=== PATIENT | female | born 1975 | race Asian ===

== ENCOUNTER 2022-07-26 20:14 | Emergency (ER) | payer SELFPAY | END 2022-07-26 20:18 | disposition left against medical advice (07) | LOC: EDSEX → EMS 20:17 | DX: Z53.21 Procedure and treatment not carried out due to patient leaving prior to being seen by health care provider (principal) ==

== ENCOUNTER 2022-07-30 16:00 | Emergency (ER) | payer MEDICAID ==
[~2022-07-30] VITALS: Ht 170.2 cm; Wt 62.3 kg
[2022-07-30 16:11] VITALS: BP 150/110
[2022-07-30 16:23] LABS: COVID AG,FIA SOURCE NASAL SWAB
[2022-07-30] MEDS ORDERED: HYDROCODONE/ACETAMINOPHEN 5-325 MG TABLET PO ONE (18:00)
[2022-07-30 18:45] LABS: INFLUENZA TYPE A Presumptive Positive (NEGATIVE)
[2022-07-30 18:49] LABS: INFLUENZA TYPE B Presumptive Positive (NEGATIVE)
== END 2022-07-30 18:07 | disposition home or self-care (01) ==
LOC: EMS 16:27 → EDSEX 16:27 → EMS 18:07
DX: R51.9 Headache, unspecified (principal); Z20.822 Contact with and (suspected) exposure to COVID-19
CPT/HCPCS: 99283; 87426; 87804; 36415; C9803

== ENCOUNTER 2022-08-10 21:24 | Emergency (ER) | payer MEDICAID ==
[~2022-08-10] VITALS: Ht 170.2 cm; Wt 62.3 kg
[2022-08-10 21:34] VITALS: BP 147/84
[2022-08-10] MEDS ORDERED: HYDR-4808 PO (21:51)
[2022-08-10] MEDS ORDERED: HYDROCODONE/ACETAMINOPHEN 5-325 MG TABLET PO ONE (22:00)
== END 2022-08-10 22:53 | disposition home or self-care (01) ==
LOC: EMS 21:39
DX: G43.909 Migraine, unspecified, not intractable, without status migrainosus (principal); Z87.890 Personal history of sex reassignment; Z98.890 Other specified postprocedural states
CPT/HCPCS: 99283

== ENCOUNTER 2022-08-23 18:40 | Emergency (ER) | payer MEDICAID ==
[~2022-08-23] VITALS: Ht 170.2 cm; Wt 64.5 kg
[~2022-08-23 18:40] MED LIST: HYDR-4808 PO
[2022-08-23 19:03] VITALS: BP 139/90
== END 2022-08-23 20:00 | disposition left against medical advice (07) ==
LOC: EMS 18:42
DX: R04.0 Epistaxis (principal); Z53.21 Procedure and treatment not carried out due to patient leaving prior to being seen by health care provider

== ENCOUNTER 2022-08-26 22:54 | Emergency (ER) | payer MEDICAID ==
[~2022-08-26] VITALS: Ht 170.2 cm; Wt 63.0 kg
[2022-08-26 23:37] VITALS: BP 142/90
[2022-08-27] MEDS ORDERED: ACETAMINOPHEN 500 MG TABLET PO ONE
[2022-08-27] MEDS ORDERED: KETOROLAC TROMETHAMINE 30 MG/ML VIAL IM ONE
== END 2022-08-27 00:27 | disposition home or self-care (01) ==
LOC: EMS 23:05
DX: G43.909 Migraine, unspecified, not intractable, without status migrainosus (principal); R04.0 Epistaxis; Z98.890 Other specified postprocedural states
CPT/HCPCS: 99283; 96372; J1885

== ENCOUNTER 2022-10-07 01:33 | Emergency (ER) | payer MEDICAID | END 2022-10-07 01:55 | disposition left against medical advice (07) | LOC: EMS 01:34 | DX: Z53.21 Procedure and treatment not carried out due to patient leaving prior to being seen by health care provider (principal) ==

== ENCOUNTER 2022-10-18 01:55 | Emergency (ER) | payer MEDICAID ==
[~2022-10-18] VITALS: Ht 170.2 cm; Wt 68.2 kg
[2022-10-18 01:58] VITALS: BP 151/98
[2022-10-18] MEDS ORDERED: DiphenhydrAMINE HCL 50 MG/ML VIAL IVP ONE (02:30)
[2022-10-18] MEDS ORDERED: METOCLOPRAMIDE HCL 5 MG/ML 2 ML VIAL IVP ONE (02:30)
[2022-10-18] MEDS ORDERED: KETOROLAC TROMETHAMINE 30 MG/ML VIAL IVP ONE (02:30)
== END 2022-10-18 04:03 | disposition home or self-care (01) ==
LOC: EMS 01:56
DX: G43.909 Migraine, unspecified, not intractable, without status migrainosus (principal); E86.0 Dehydration; Z98.890 Other specified postprocedural states
CPT/HCPCS: 99284; 96374; 96375; 93005; J1200; J1885; J2765

== ENCOUNTER 2022-10-28 02:19 | Emergency (ER) | payer MEDICAID ==
[~2022-10-28] VITALS: Ht 170.2 cm; Wt 68.2 kg
[2022-10-28] MEDS ORDERED: DiphenhydrAMINE HCL 25 MG CAPSULE PO ONE (02:45)
[2022-10-28] MEDS ORDERED: HYDROCODONE/ACETAMINOPHEN 5-325 MG TABLET PO ONE (02:45)
[2022-10-28 03:01] VITALS: BP 136/90
== END 2022-10-28 03:07 | disposition home or self-care (01) ==
LOC: EDSEX → EMS 02:20
DX: R42 Dizziness and giddiness (principal); R51.9 Headache, unspecified; Z98.890 Other specified postprocedural states
CPT/HCPCS: 99283

== ENCOUNTER 2022-11-03 00:55 | Emergency (ER) | payer MEDICAID ==
[~2022-11-03] VITALS: Ht 170.2 cm; Wt 67.0 kg
[2022-11-03 01:04] VITALS: BP 137/77
== END 2022-11-03 02:00 | disposition left against medical advice (07) ==
LOC: EMS 00:57
DX: Z53.21 Procedure and treatment not carried out due to patient leaving prior to being seen by health care provider (principal)
CPT/HCPCS: 99281; Z7502

== ENCOUNTER 2022-11-07 05:53 | Emergency (ER) | payer MEDICAID ==
[~2022-11-07] VITALS: Ht 170.2 cm; Wt 67.0 kg
[2022-11-07 05:56] VITALS: BP 134/96
[2022-11-07] MEDS ORDERED: CIPR2.5D17 OU (06:01)
== END 2022-11-07 06:13 | disposition home or self-care (01) ==
LOC: EMS 05:54
DX: H10.9 Unspecified conjunctivitis (principal); G43.909 Migraine, unspecified, not intractable, without status migrainosus; Z98.890 Other specified postprocedural states
CPT/HCPCS: 99283; Z7502

== ENCOUNTER 2022-11-12 01:01 | Emergency (ER) | payer MEDICAID ==
[~2022-11-12] VITALS: Ht 172.7 cm; Wt 72.0 kg
[~2022-11-12 01:01] MED LIST changes: +CIPR2.5D17 OU; -HYDR-4808 PO
[2022-11-12 01:05] VITALS: BP 134/90
== END 2022-11-12 02:05 | disposition left against medical advice (07) ==
LOC: EMS 01:01
DX: H57.11 Ocular pain, right eye (principal); Z53.21 Procedure and treatment not carried out due to patient leaving prior to being seen by health care provider
CPT/HCPCS: 99281; Z7502

== ENCOUNTER 2022-12-08 07:25 | Emergency (ER) | payer MEDICAID ==
[~2022-12-08] VITALS: Ht 172.7 cm; Wt 72.0 kg
[2022-12-08 07:45] VITALS: BP 145/88
[2022-12-08] MEDS ORDERED: PROPARACAINE HCL 0.5% 15 ML OPHTHALMIC SOLUTION OD ONE (07:45)
[2022-12-08] MEDS ORDERED: FLUORESCEIN SODIUM 1 MG STRIP OS ONE (07:45)
[2022-12-08] MEDS ORDERED: FLUORESCEIN SODIUM 1 MG STRIP OD ONE (07:45)
[2022-12-08] MEDS ORDERED: OFLOXACIN 0.3% 5 ML OPHTHALMIC SOLUTION OU ONE (08:00)
[2022-12-08] MEDS ORDERED: GENTOS OU (08:07)
[2022-12-08] MEDS ORDERED: GENTAMICIN SULFATE 0.3% OPHTHALMIC SOLUTION 5 ML OU ONE (08:15)
== END 2022-12-08 08:24 | disposition home or self-care (01) ==
LOC: EMS 07:25
DX: T15.01XA Foreign body in cornea, right eye, initial encounter (principal); G43.909 Migraine, unspecified, not intractable, without status migrainosus; Z98.890 Other specified postprocedural states; W45.8XXA Other foreign body or object entering through skin, initial encounter; Y93.89 Activity, other specified; Y92.89 Other specified places as the place of occurrence of the external cause; Y99.8 Other external cause status
CPT/HCPCS: 99283

== ENCOUNTER 2022-12-21 01:56 | Emergency (ER) | payer MEDICAID ==
[~2022-12-21] VITALS: Ht 170.2 cm; Wt 57.0 kg
[~2022-12-21 01:56] MED LIST changes: -CIPR2.5D17 OU; +GENTOS OU
[2022-12-21 03:30] LABS: EOSINOPHILS % (AUTO) 1.8 % (1.0-6.0); HEMOGLOBIN 13.2 g/dL (13.5-17.5); LYMPHOCYTES # (AUTO) 0.7 K/uL (1.0-4.8); LYMPHOCYTES % (AUTO) 30.8 % (22.0-44.0); MEAN CORPUSCULAR HEMOGLOBIN 31.5 pg (26.0-34.0); MEAN CORPUSCULAR HGB CONC 32.9 G/dL (31.0-37.0); MEAN CORPUSCULAR VOLUME 96 fL (80-100); MONOCYTES # (AUTO) 0.3 K/uL (0.1-1.0); MONOCYTES % (AUTO) 13.3 % (2.0-9.0); NEUTROPHILS # (AUTO) 1.3 K/uL (1.8-7.7); NEUTROPHILS % (AUTO) 53.1 % (40.0-70.0); PLATELET COUNT (AUTO) 242 K/uL (150-450); RED BLOOD CELL COUNT(AUTO) 4.18 MIL/uL (4.50-5.90); RED CELL DISTRIBUTION WIDTH 13.1 % (11.5-14.5)
[2022-12-21 03:39] LABS: ANION GAP 5 mmol/L (8-16); CARBON DIOXIDE 30 mmol/L (22-29); CHLORIDE 102 mmol/L (98-107); CREATININE 1.07 mg/dL (0.60-1.30); GLOMERULAR FILTR. RATE CALC > 60 mL/min (>60); GLUCOSE,RANDOM 94 mg/dL (70-110); POTASSIUM 3.7 mmol/L (3.5-5.1); SODIUM SERUM 137 mmol/L (136-145)
[2022-12-21 03:46] LABS: ALANINE AMINOTRANSFERASE 52 U/L (12-78); ALBUMIN 3.6 g/dL (3.4-5.0); ALKALINE PHOSPHATASE 98 U/L (46-116); ASPARTATE AMINOTRANSFERASE 40 U/L (15-37); BILIRUBIN,TOTAL 0.3 mg/dL (0.1-1.0); TOTAL PROTEIN, SERUM 7.8 g/dL (6.4-8.2)
[2022-12-21] MEDS ORDERED: OLANZapine 5 MG TABLET PO ONE (04:15)
[2022-12-21 04:26] VITALS: BP 130/88
== END 2022-12-21 04:36 | disposition home or self-care (01) ==
LOC: EMS 01:57
DX: F41.9 Anxiety disorder, unspecified (principal); F32.A Depression, unspecified; G47.00 Insomnia, unspecified; G43.909 Migraine, unspecified, not intractable, without status migrainosus
CPT/HCPCS: 99283; 80053; 85025; 36415; G0480

== ENCOUNTER 2023-01-03 06:57 | Emergency (ER) | payer MEDICAID ==
[~2023-01-03] VITALS: Ht 170.2 cm; Wt 57.7 kg
[2023-01-03 07:04] VITALS: BP 122/88
[2023-01-03] MEDS ORDERED: GENTAMICIN SULFATE 0.3% OPHTHALMIC SOLUTION 5 ML OD ONE (07:15)
== END 2023-01-03 08:06 | disposition home or self-care (01) ==
LOC: EMS 06:57
DX: S05.01XA Injury of conjunctiva and corneal abrasion without foreign body, right eye, initial encounter (principal); H10.9 Unspecified conjunctivitis; G43.909 Migraine, unspecified, not intractable, without status migrainosus; Z98.890 Other specified postprocedural states; X58.XXXA Exposure to other specified factors, initial encounter; Y93.89 Activity, other specified; Y92.89 Other specified places as the place of occurrence of the external cause; Y99.8 Other external cause status
CPT/HCPCS: 99282; Z7502; Z7610

== ENCOUNTER 2023-01-12 23:39 | Emergency (ER) | payer MEDICAID ==
[~2023-01-12] VITALS: Ht 170.2 cm; Wt 58.0 kg
[2023-01-12 23:46] VITALS: BP 122/82; PULSE 92; RESP 18; TEMP 99.7
[2023-01-13] MEDS ORDERED: TOBRAMYCIN/DEXAMETHASONE 5 ML OPHTHALMIC SUSPENSION OU ONE (00:15)
== END 2023-01-13 00:27 | disposition home or self-care (01) ==
LOC: EMS 23:42
DX: H10.33 Unspecified acute conjunctivitis, bilateral (principal); E03.9 Hypothyroidism, unspecified; Z98.890 Other specified postprocedural states
CPT/HCPCS: 99283

== ENCOUNTER 2023-01-23 10:09 | Emergency (ER) | payer MEDICAID | END 2023-01-23 12:06 | disposition left against medical advice (07) | LOC: EMS 10:09 | DX: Z53.21 Procedure and treatment not carried out due to patient leaving prior to being seen by health care provider (principal) | CPT/HCPCS: 99281; Z7502 ==

== ENCOUNTER 2023-03-23 01:57 | Emergency (ER) | payer MEDICAID ==
[~2023-03-23] VITALS: Ht 170.2 cm; Wt 61.0 kg
[2023-03-23 02:01] VITALS: BP 113/89; PULSE 92; RESP 16; TEMP 97.9
== END 2023-03-23 02:35 | disposition left against medical advice (07) ==
LOC: EMS 02:02
DX: G43.909 Migraine, unspecified, not intractable, without status migrainosus (principal); R06.02 Shortness of breath; R42 Dizziness and giddiness; R09.81 Nasal congestion; Z53.21 Procedure and treatment not carried out due to patient leaving prior to being seen by health care provider
CPT/HCPCS: 99281; Z7502

== ENCOUNTER 2023-07-16 21:45 | Emergency (ER) | payer MEDICAID | END 2023-07-16 22:07 | disposition left against medical advice (07) | LOC: EMS 21:46 | DX: Z53.21 Procedure and treatment not carried out due to patient leaving prior to being seen by health care provider (principal) ==

== ENCOUNTER 2023-07-19 23:11 | Emergency (ER) | payer MEDICAID ==
[~2023-07-19] VITALS: Ht 172.7 cm; Wt 79.5 kg
[2023-07-19 23:14] VITALS: BP 146/88; PULSE 94; RESP 15; TEMP 98
[2023-07-19] MEDS ORDERED: DiphenhydrAMINE HCL 25 MG CAPSULE PO ONE (23:15)
[2023-07-19] MEDS ORDERED: ACETAMINOPHEN 500 MG TABLET PO ONE (23:15)
[2023-07-19] MEDS ORDERED: GABAPENTIN 100 MG CAPSULE PO ONE (23:15)
== END 2023-07-19 23:31 | disposition home or self-care (01) ==
LOC: EMS 23:12
DX: R51.9 Headache, unspecified (principal); R42 Dizziness and giddiness; E03.9 Hypothyroidism, unspecified; F64.0 Transsexualism; Z98.890 Other specified postprocedural states
CPT/HCPCS: 99284; Z7502; Z7610

== ENCOUNTER 2023-07-28 23:56 | Emergency (ER) | payer MEDICAID ==
[~2023-07-28] VITALS: Ht 167.6 cm; Wt 80.0 kg
[2023-07-29 00:42] VITALS: BP 150/90; PULSE 92; RESP 18; TEMP 98.1
== END 2023-07-29 01:45 | disposition left against medical advice (07) ==
LOC: EMS 23:57
DX: R04.0 Epistaxis (principal); Z53.21 Procedure and treatment not carried out due to patient leaving prior to being seen by health care provider
CPT/HCPCS: 99281; Z7502

== ENCOUNTER 2023-08-05 00:22 | Emergency (ER) | payer MEDICAID ==
[~2023-08-05] VITALS: Ht 170.2 cm; Wt 60.0 kg
[2023-08-05] MEDS ORDERED: NEOMYCIN/POLYMYXIN B/HYDROCORT 10 ML OTIC SOLUTION AU ONE (03:00)
[2023-08-05] MEDS ORDERED: ACETAMINOPHEN 500 MG TABLET PO ONE (03:00)
[2023-08-05] MEDS ORDERED: CORTSOL AU (03:25)
[2023-08-05] MEDS ORDERED: ACET-3385 PO (03:25)
[2023-08-05 03:26] VITALS: BP 124/77; PULSE 88; RESP 18; TEMP 97.9
== END 2023-08-05 04:15 | disposition home or self-care (01) ==
LOC: EMS 00:23
DX: H60.93 Unspecified otitis externa, bilateral (principal); R04.0 Epistaxis; F64.0 Transsexualism; Z98.890 Other specified postprocedural states
CPT/HCPCS: 99283

== ENCOUNTER 2023-08-26 12:48 | Emergency (ER) | payer MEDICAID ==
[~2023-08-26 12:48] MED LIST changes: +ACET-3385 PO; +CORTSOL AU
== END 2023-08-26 15:34 | disposition left against medical advice (07) ==
LOC: EMS 13:25
DX: Z53.21 Procedure and treatment not carried out due to patient leaving prior to being seen by health care provider (principal)

== ENCOUNTER 2023-09-01 15:28 | Emergency (ER) | payer MEDICAID ==
[~2023-09-01] VITALS: Ht 170.2 cm; Wt 84.1 kg
[2023-09-01 15:31] VITALS: BP 134/98; PULSE 98; RESP 18; TEMP 98
[2023-09-01] MEDS ORDERED: LEVO50TA11 PO (16:05)
[2023-09-01] MEDS: OXYMETAZOLINE HCL 0.05% 15 ML NASAL SPRAY NASAL ONE (16:37)
== END 2023-09-01 17:06 | disposition home or self-care (01) ==
LOC: EMS 15:28
DX: R04.0 Epistaxis (principal); Z85.9 Personal history of malignant neoplasm, unspecified
CPT/HCPCS: 99282; Z7502; Z7610

== ENCOUNTER 2023-09-05 11:33 | Emergency (ER) | payer MEDICAID ==
[~2023-09-05] VITALS: Ht 170.2 cm; Wt 57.7 kg
[~2023-09-05 11:33] MED LIST changes: +LEVO50TA11 PO
[2023-09-05 11:37] VITALS: BP 105/72; PULSE 98; RESP 18; TEMP 98.5
== END 2023-09-05 12:31 | disposition left against medical advice (07) ==
LOC: EMS 11:56
DX: R04.0 Epistaxis (principal); Z53.21 Procedure and treatment not carried out due to patient leaving prior to being seen by health care provider
CPT/HCPCS: 99281; Z7502

== ENCOUNTER 2023-09-17 22:07 | Emergency (ER) | payer MEDICAID ==
[~2023-09-17] VITALS: Ht 170.2 cm; Wt 57.7 kg
[~2023-09-17 22:07] MED LIST changes: -CORTSOL AU; -GENTOS OU
[2023-09-17 22:17] VITALS: BP 117/62; PULSE 118; RESP 18; TEMP 97.8
[2023-09-17] MEDS: PHENYLEPHRINE HCL 0.25% 15 ML NASAL SPRAY NASAL ONE (23:19)
== END 2023-09-17 23:52 | disposition home or self-care (01) ==
LOC: EMS 22:07
DX: R04.0 Epistaxis (principal); Z85.818 Personal history of malignant neoplasm of other sites of lip, oral cavity, and pharynx
CPT/HCPCS: 99282; Z7502; Z7610

== ENCOUNTER 2023-10-11 01:17 | Emergency (ER) | payer MEDICAID ==
[~2023-10-11] VITALS: Ht 167.6 cm; Wt 59.1 kg
[2023-10-11 01:19] VITALS: BP 150/90; PULSE 103; RESP 18; TEMP 97.6
== END 2023-10-11 02:28 | disposition left against medical advice (07) ==
LOC: EMS 01:17
DX: R04.0 Epistaxis (principal); Z53.21 Procedure and treatment not carried out due to patient leaving prior to being seen by health care provider
CPT/HCPCS: 99281; Z7502

== ENCOUNTER 2023-11-03 02:55 | Emergency (ER) | payer MEDICAID ==
[~2023-11-03 02:55] MED LIST changes: -ACET-3385 PO
== END 2023-11-03 03:21 | disposition left against medical advice (07) ==
LOC: EMS 03:02
DX: Z53.21 Procedure and treatment not carried out due to patient leaving prior to being seen by health care provider (principal)

== ENCOUNTER 2023-12-04 02:17 | Emergency (ER) | payer MEDICAID ==
[~2023-12-04 02:17] MED LIST changes: +BENZ-227 PO
== END 2023-12-04 04:26 | disposition left against medical advice (07) ==
LOC: EMS 02:19
DX: Z53.21 Procedure and treatment not carried out due to patient leaving prior to being seen by health care provider (principal)

== ENCOUNTER 2023-12-27 13:59 | Emergency (ER) | payer MEDICAID ==
[~2023-12-27] VITALS: Ht 172.7 cm; Wt 61.4 kg
[2023-12-27 14:45] VITALS: TEMP 97.7
[2023-12-27 14:53] LABS: BASOPHILS % (AUTO) 0.7 % (0.0-2.0); EOSINOPHILS % (AUTO) 0.6 % (1.0-6.0); HEMOGLOBIN 13.6 g/dL (13.5-17.5); LYMPHOCYTES # (AUTO) 1.1 K/uL (1.0-4.8); LYMPHOCYTES % (AUTO) 33.3 % (22.0-44.0); MEAN CORPUSCULAR HEMOGLOBIN 29.7 pg (26.0-34.0); MEAN CORPUSCULAR VOLUME 90 fL (80-100); MONOCYTES # (AUTO) 0.3 K/uL (0.1-1.0); MONOCYTES % (AUTO) 9.9 % (2.0-9.0); NEUTROPHILS # (AUTO) 1.8 K/uL (1.8-7.7); NEUTROPHILS % (AUTO) 55.5 % (40.0-70.0); PLATELET COUNT (AUTO) 268 K/uL (150-450); RED BLOOD CELL COUNT(AUTO) 4.56 MIL/uL (4.50-5.90); RED CELL DISTRIBUTION WIDTH 15.3 % (11.5-14.5); WHITE BLOOD COUNT (AUTO) 3.2 K/uL (4.5-11.0)
[2023-12-27] MEDS: ONDANSETRON HCL 4 MG/2 ML VIAL IVP ONE (15:02)
[2023-12-27] MEDS: SODIUM CHLORIDE 0.9% 1,000 ML IV ONE (15:02)
[2023-12-27 15:06] LABS: ANION GAP 6 mmol/L (8-16); CALCIUM, TOTAL 9.1 mg/dL (8.8-10.5); CARBON DIOXIDE 28 mmol/L (22-29); CHLORIDE 103 mmol/L (98-107); CREATININE 0.77 mg/dL (0.60-1.30); GLOMERULAR FILTR. RATE CALC > 60 mL/min (>60); GLUCOSE,RANDOM 118 mg/dL (70-110); POTASSIUM 4.4 mmol/L (3.5-5.1); SODIUM SERUM 137 mmol/L (136-145); UREA NITROGEN, BLOOD 17 mg/dL (7-18)
[2023-12-27 15:12] LABS: ALANINE AMINOTRANSFERASE 44 U/L (12-78); ALBUMIN 3.4 g/dL (3.4-5.0); ALKALINE PHOSPHATASE 65 U/L (46-116); ASPARTATE AMINOTRANSFERASE 40 U/L (15-37); BILIRUBIN,TOTAL 0.7 mg/dL (0.1-1.0); LIPASE 25 U/L (16-77); TOTAL PROTEIN, SERUM 8.4 g/dL (6.4-8.2)
[2023-12-27] MEDS ORDERED: POLY119P3 PO (15:57)
[2023-12-27 16:02] VITALS: BP 136/80; PULSE 84; RESP 16
[2023-12-27 16:29] LABS: APPEARANCE,URINE CLEAR (CLEAR); BILIRUBIN,URINE NEGATIVE (NEGATIVE); COLOR,URINE LIGHT YELLOW (YELLOW); GLUCOSE, URINE (UA) NEGATIVE (NEGATIVE); KETONES,URINE NEGATIVE (NEGATIVE); LEUKOCYTE ESTERASE ,URINE NEGATIVE (NEGATIVE); NITRATE,URINE NEGATIVE (NEGATIVE); OCCULT BLOOD,URINE NEGATIVE (NEGATIVE); PH,URINE 6.5 (5.0-8.0); PROTEIN,URINE NEGATIVE (NEGATIVE); SPECIFIC GRAVITIY, URINE 1.021 (1.003-1.030); UROBILINOGEN,URINE <=1.0 mg/dL (<=1.0)
== END 2023-12-27 16:50 | disposition home or self-care (01) ==
LOC: EMS 13:59
DX: R10.13 Epigastric pain (principal); K59.00 Constipation, unspecified; G43.909 Migraine, unspecified, not intractable, without status migrainosus; Z85.9 Personal history of malignant neoplasm, unspecified
CPT/HCPCS: 99284; 96374; 96361; 80053; 81003; 83690; 85025; 36415; 74022; J2405; J7030

== ENCOUNTER 2024-02-04 22:41 | Emergency (ER) | payer MEDICAID ==
[~2024-02-04] VITALS: Ht 172.7 cm; Wt 60.9 kg
[~2024-02-04 22:41] MED LIST changes: -BENZ-227 PO; +POLY119P3 PO
[2024-02-04 22:51] VITALS: TEMP 97.4
[2024-02-04] MEDS: SODIUM CHLORIDE 0.9% 1,000 ML IV ONE (23:17)
[2024-02-04] MEDS: ONDANSETRON HCL 4 MG/2 ML VIAL IVP ONE (23:18)
[2024-02-04 23:43] LABS: BASOPHILS % (AUTO) 1.1 % (0.0-2.0); EOSINOPHILS % (AUTO) 1.1 % (1.0-6.0); HEMATOCRIT 38.7 % (41-53); HEMOGLOBIN 12.7 g/dL (13.5-17.5); LYMPHOCYTES # (AUTO) 0.8 K/uL (1.0-4.8); LYMPHOCYTES % (AUTO) 30.7 % (22.0-44.0); MEAN CORPUSCULAR HEMOGLOBIN 29.2 pg (26.0-34.0); MEAN CORPUSCULAR HGB CONC 32.7 G/dL (31.0-37.0); MEAN CORPUSCULAR VOLUME 89 fL (80-100); MONOCYTES # (AUTO) 0.3 K/uL (0.1-1.0); MONOCYTES % (AUTO) 10.5 % (2.0-9.0); NEUTROPHILS # (AUTO) 1.5 K/uL (1.8-7.7); NEUTROPHILS % (AUTO) 56.6 % (40.0-70.0); PLATELET COUNT (AUTO) 245 K/uL (150-450); RED BLOOD CELL COUNT(AUTO) 4.34 MIL/uL (4.50-5.90); RED CELL DISTRIBUTION WIDTH 15.8 % (11.5-14.5); WHITE BLOOD COUNT (AUTO) 2.6 K/uL (4.5-11.0)
[2024-02-04 23:48] LABS: COVID AG,FIA SOURCE NASAL SWAB
[2024-02-04 23:54] LABS: ANION GAP 7 mmol/L (8-16); CALCIUM, TOTAL 9.1 mg/dL (8.8-10.5); CARBON DIOXIDE 33 mmol/L (22-29); CHLORIDE 101 mmol/L (98-107); CREATININE 0.88 mg/dL (0.60-1.30); GLOMERULAR FILTR. RATE CALC > 60 mL/min (>60); GLUCOSE,RANDOM 96 mg/dL (70-110); POTASSIUM 4.2 mmol/L (3.5-5.1); SODIUM SERUM 141 mmol/L (136-145); UREA NITROGEN, BLOOD 16 mg/dL (7-18)
[2024-02-05 00:02] LABS: TROPONIN I-HIGH SENSITIVITY 8 ng/L (<76)
[2024-02-05 00:06] LABS: LACTIC ACID 0.8 mmol/L (0.4-2.0)
[2024-02-05 00:12] LABS: INFLUENZA TYPE A NEGATIVE FOR TYPE A (NEGATIVE); INFLUENZA TYPE B POSITIVE FOR TYPE B (NEGATIVE); SARS-COV2 (COVID) ANTIGEN,FIA Negative (Negative)
[2024-02-05 00:17] LABS: B-TYPE NATRIURETIC PEPTIDE 35 pg/mL (0-100)
[2024-02-05 00:18] LABS: ALANINE AMINOTRANSFERASE 37 U/L (12-78); ALBUMIN 3.3 g/dL (3.4-5.0); ALKALINE PHOSPHATASE 59 U/L (46-116); ASPARTATE AMINOTRANSFERASE 42 U/L (15-37); BILIRUBIN,TOTAL 0.4 mg/dL (0.1-1.0); CREATINE KINASE, TOTAL ONLY 275 U/L (39-308); LIPASE 40 U/L (16-77); PHOSPHORUS 3.6 mg/dL (2.5-4.9); TOTAL PROTEIN, SERUM 7.7 g/dL (6.4-8.2)
[2024-02-05 02:21] LABS: AMPHET/METH SCREEN,URINE POSITIVE (NEGATIVE); BARBITURATE SCREEN, URINE NEGATIVE (NEGATIVE); BENZODIAZEPINES SCREEN,URINE NEGATIVE (NEGATIVE); CANNABINOID SCREEN,URINE NEGATIVE (NEGATIVE); COCAINE SCREEN,URINE NEGATIVE (NEGATIVE); METHADONE SCREEN, URINE NEGATIVE (NEGATIVE); OPIATE SCREEN,URINE NEGATIVE (NEGATIVE); PHENCYCLIDINE SCREEN,URINE NEGATIVE (NEGATIVE)
[2024-02-05 02:22] LABS: ALCOHOL, URINE DRUG SCREEN NEGATIVE (NEGATIVE)
[2024-02-05] MEDS ORDERED: ONDA-104 PO (02:43)
[2024-02-05] MEDS ORDERED: ACET-3385 PO (02:43)
[2024-02-05] MEDS ORDERED: IBUP-1492 PO (02:43)
[2024-02-05 02:50] VITALS: BP 123/67; PULSE 89; RESP 16
== END 2024-02-05 02:52 | disposition home or self-care (01) ==
LOC: EMS 22:41
DX: F15.10 Other stimulant abuse, uncomplicated (principal); R11.2 Nausea with vomiting, unspecified; J11.1 Influenza due to unidentified influenza virus with other respiratory manifestations; Z85.9 Personal history of malignant neoplasm, unspecified; Z20.822 Contact with and (suspected) exposure to COVID-19
CPT/HCPCS: 99285; 96374; 70450; 71045; 96361; 87426; 80053; 82550; 83605; 83690; 83735; 83880; 84100; 84484; 85025; 85730; 87804; 36415; 93005; 80307; G0480; J2405; J7030

== ENCOUNTER 2024-02-12 16:27 | Emergency (ER) | payer MEDICAID ==
[~2024-02-12] VITALS: Ht 172.7 cm; Wt 63.6 kg
[~2024-02-12 16:27] MED LIST changes: +ACET-3385 PO; +IBUP-1492 PO; +ONDA-104 PO
[2024-02-12 16:35] VITALS: TEMP 98
[2024-02-12] MEDS: SODIUM CHLORIDE 0.9% 1,000 ML IV ONE (19:39)
[2024-02-12] MEDS: DiphenhydrAMINE HCL 50 MG/ML VIAL IVP ONE (19:49)
[2024-02-12] MEDS: PROCHLORPERAZINE EDISYLATE 5 MG/ML 2 ML VIAL IVP ONE (19:49)
[2024-02-12] MEDS: ACETAMINOPHEN 500 MG TABLET PO ONE (19:49)
[2024-02-12] MEDS: KETOROLAC TROMETHAMINE 30 MG/ML VIAL IVP ONE (19:50)
[2024-02-12 20:04] VITALS: BP 135/84; PULSE 74; RESP 20
== END 2024-02-12 22:36 | disposition home or self-care (01) ==
LOC: EMS 16:27
DX: G43.909 Migraine, unspecified, not intractable, without status migrainosus (principal); Z98.890 Other specified postprocedural states
CPT/HCPCS: 99284; 96374; 96375; 96361; J1200; J1885; J0780; J7030

== ENCOUNTER 2024-03-09 03:17 | Emergency (ER) | payer MEDICAID ==
[~2024-03-09] VITALS: Ht 170.2 cm; Wt 59.0 kg
[2024-03-09 03:22] VITALS: TEMP 98.7
[2024-03-09] MEDS: SODIUM CHLORIDE 0.9% 1,000 ML IV ONE (04:19)
[2024-03-09] MEDS: PROCHLORPERAZINE EDISYLATE 5 MG/ML 2 ML VIAL IVP ONE (04:19)
[2024-03-09] MEDS: KETOROLAC TROMETHAMINE 30 MG/ML VIAL IVP ONE (04:19)
[2024-03-09] MEDS: DiphenhydrAMINE HCL 50 MG/ML VIAL IVP ONE (04:19)
[2024-03-09 05:07] LABS: BASOPHILS % (AUTO) 0.5 % (0.0-2.0); EOSINOPHILS % (AUTO) 0.6 % (1.0-6.0); HEMOGLOBIN 14.5 g/dL (13.5-17.5); LYMPHOCYTES # (AUTO) 1.1 K/uL (1.0-4.8); LYMPHOCYTES % (AUTO) 42.5 % (22.0-44.0); MEAN CORPUSCULAR HEMOGLOBIN 29.7 pg (26.0-34.0); MEAN CORPUSCULAR HGB CONC 32.9 G/dL (31.0-37.0); MEAN CORPUSCULAR VOLUME 90 fL (80-100); MONOCYTES # (AUTO) 0.3 K/uL (0.1-1.0); MONOCYTES % (AUTO) 12.4 % (2.0-9.0); NEUTROPHILS # (AUTO) 1.2 K/uL (1.8-7.7); PLATELET COUNT (AUTO) 262 K/uL (150-450); RED BLOOD CELL COUNT(AUTO) 4.87 MIL/uL (4.50-5.90); RED CELL DISTRIBUTION WIDTH 15.3 % (11.5-14.5); WHITE BLOOD COUNT (AUTO) 2.7 K/uL (4.5-11.0)
[2024-03-09 05:09] LABS: ANION GAP 8 mmol/L (8-16); CALCIUM, TOTAL 8.8 mg/dL (8.8-10.5); CARBON DIOXIDE 27 mmol/L (22-29); CHLORIDE 100 mmol/L (98-107); CREATININE 1.03 mg/dL (0.60-1.30); GLOMERULAR FILTR. RATE CALC > 60 mL/min (>60); GLUCOSE,RANDOM 101 mg/dL (70-110); POTASSIUM 3.9 mmol/L (3.5-5.1); SODIUM SERUM 135 mmol/L (136-145); UREA NITROGEN, BLOOD 16 mg/dL (7-18)
[2024-03-09] MEDS ORDERED: ONDA-104 PO (05:56)
[2024-03-09 06:30] VITALS: BP 119/75; PULSE 71; RESP 20
== END 2024-03-09 07:41 | disposition home or self-care (01) ==
LOC: EMS 03:17
DX: G43.909 Migraine, unspecified, not intractable, without status migrainosus (principal); R11.2 Nausea with vomiting, unspecified; R53.1 Weakness; Z98.890 Other specified postprocedural states
CPT/HCPCS: 99284; 96374; 96375; 96361; 80048; 85025; 36415; J1200; J1885; J0780; J7030

== ENCOUNTER 2024-03-13 20:04 | Emergency (ER) | payer MEDICAID ==
[~2024-03-13] VITALS: Ht 170.2 cm; Wt 60.9 kg
[2024-03-13 20:10] VITALS: BP 131/91; PULSE 104; RESP 16; TEMP 98.1; O2SAT 100
[2024-03-13] MEDS ORDERED: KETOROLAC TROMETHAMINE 30 MG/ML VIAL IVP ONE (20:45)
[2024-03-13] MEDS ORDERED: SODIUM CHLORIDE 0.9% 1,000 ML IV ONE (20:45)
[2024-03-13 21:04] LABS: BASOPHILS % (AUTO) 0.9 % (0.0-2.0); EOSINOPHILS % (AUTO) 0.7 % (1.0-6.0); HEMATOCRIT 36.6 % (41-53); HEMOGLOBIN 12.1 g/dL (13.5-17.5); LYMPHOCYTES % (AUTO) 39.3 % (22.0-44.0); MEAN CORPUSCULAR HEMOGLOBIN 29.7 pg (26.0-34.0); MEAN CORPUSCULAR HGB CONC 33.1 G/dL (31.0-37.0); MEAN CORPUSCULAR VOLUME 90 fL (80-100); MONOCYTES # (AUTO) 0.4 K/uL (0.1-1.0); MONOCYTES % (AUTO) 13.4 % (2.0-9.0); NEUTROPHILS # (AUTO) 1.2 K/uL (1.8-7.7); NEUTROPHILS % (AUTO) 45.7 % (40.0-70.0); PLATELET COUNT (AUTO) 225 K/uL (150-450); RED BLOOD CELL COUNT(AUTO) 4.07 MIL/uL (4.50-5.90); RED CELL DISTRIBUTION WIDTH 15.4 % (11.5-14.5); WHITE BLOOD COUNT (AUTO) 2.6 K/uL (4.5-11.0)
[2024-03-13 21:13] LABS: CALCIUM, TOTAL 8.7 mg/dL (8.8-10.5); CREATININE 1.47 mg/dL (0.60-1.30)
[2024-03-13] MEDS: DiphenhydrAMINE HCL 50 MG/ML VIAL IVP ONE (21:20)
[2024-03-13] MEDS: PROCHLORPERAZINE EDISYLATE 5 MG/ML 2 ML VIAL IVP ONE (21:20)
[2024-03-13] MEDS: KETOROLAC TROMETHAMINE 15 MG/ML VIAL IVP ONE (21:20)
== END 2024-03-13 22:47 | disposition left against medical advice (07) ==
LOC: EMS 20:04
DX: G43.909 Migraine, unspecified, not intractable, without status migrainosus (principal); Z98.890 Other specified postprocedural states
CPT/HCPCS: 99284; 96374; 96375; 80048; 85025; 36415; J1200; J1885; J0780; J7030

== ENCOUNTER 2024-05-27 19:11 | Emergency (ER) | payer MEDICAID ==
[~2024-05-27] VITALS: Ht 170.2 cm; Wt 59.0 kg
[2024-05-27 19:21] VITALS: TEMP 98
[2024-05-27 22:39] LABS: ANION GAP 5 mmol/L (8-16); CALCIUM, TOTAL 8.5 mg/dL (8.8-10.5); CARBON DIOXIDE 30 mmol/L (22-29); CHLORIDE 102 mmol/L (98-107); CREATININE 0.84 mg/dL (0.60-1.30); GLOMERULAR FILTR. RATE CALC > 60 mL/min (>60); GLUCOSE,RANDOM 111 mg/dL (70-110); POTASSIUM 4.3 mmol/L (3.5-5.1); SODIUM SERUM 137 mmol/L (136-145); UREA NITROGEN, BLOOD 16 mg/dL (7-18)
[2024-05-27 22:46] LABS: ALANINE AMINOTRANSFERASE 34 U/L (12-78); ALBUMIN 3.3 g/dL (3.4-5.0); ALKALINE PHOSPHATASE 94 U/L (46-116); ASPARTATE AMINOTRANSFERASE 35 U/L (15-37); BILIRUBIN,TOTAL 0.4 mg/dL (0.1-1.0); LIPASE 32 U/L (16-77); TOTAL PROTEIN, SERUM 8.2 g/dL (6.4-8.2)
[2024-05-27 23:10] LABS: BASOPHILS % (AUTO) 0.4 % (0.0-2.0); EOSINOPHILS % (AUTO) 0.2 % (1.0-6.0); HEMATOCRIT 37.2 % (41-53); LYMPHOCYTES # (AUTO) 0.7 K/uL (1.0-4.8); LYMPHOCYTES % (AUTO) 20.7 % (22.0-44.0); MEAN CORPUSCULAR HEMOGLOBIN 28.2 pg (26.0-34.0); MEAN CORPUSCULAR HGB CONC 32.2 G/dL (31.0-37.0); MEAN CORPUSCULAR VOLUME 87 fL (80-100); MONOCYTES # (AUTO) 0.3 K/uL (0.1-1.0); MONOCYTES % (AUTO) 9.9 % (2.0-9.0); NEUTROPHILS # (AUTO) 2.3 K/uL (1.8-7.7); NEUTROPHILS % (AUTO) 68.8 % (40.0-70.0); PLATELET COUNT (AUTO) 358 K/uL (150-450); RED BLOOD CELL COUNT(AUTO) 4.25 MIL/uL (4.50-5.90); RED CELL DISTRIBUTION WIDTH 14.3 % (11.5-14.5); WHITE BLOOD COUNT (AUTO) 3.4 K/uL (4.5-11.0)
[2024-05-27] MEDS: ACETAMINOPHEN 500 MG TABLET PO ONE (23:43)
[2024-05-28] MEDS: ONDANSETRON HCL 4 MG/2 ML VIAL IVP ONE (00:20)
[2024-05-28] MEDS: METOCLOPRAMIDE HCL 5 MG/ML 2 ML VIAL IVP ONE (00:20)
[2024-05-28] MEDS: DiphenhydrAMINE HCL 50 MG/ML VIAL IVP ONE (00:20)
[2024-05-28] MEDS: SODIUM CHLORIDE 0.9% 1,000 ML IV ONE (00:21)
[2024-05-28 01:35] VITALS: BP 135/84; PULSE 83; RESP 16; O2SAT 100
== END 2024-05-28 05:54 | disposition home or self-care (01) ==
LOC: EMS 19:13
DX: G43.909 Migraine, unspecified, not intractable, without status migrainosus (principal); Z98.890 Other specified postprocedural states
CPT/HCPCS: 99284; 80048; 80076; 83690; 85025; 36415; 96374; 96361; 96375; J1200; J2765; J2405; J7030

== ENCOUNTER 2024-06-28 12:37 | Emergency (ER) | payer MEDICAID ==
[~2024-06-28] VITALS: Ht 177.8 cm; Wt 60.5 kg
[2024-06-28 12:43] VITALS: BP 132/84; PULSE 99; RESP 16; TEMP 98.3; O2SAT 98
[2024-06-28 13:08] LABS: BAND NEUTROPHILS % (MANUAL) 0 % (0-5)
[2024-06-28 13:10] LABS: HEMATOCRIT 37.2 % (41-53); HEMOGLOBIN 11.9 g/dL (13.5-17.5); MEAN CORPUSCULAR HEMOGLOBIN 27.2 pg (26.0-34.0); MEAN CORPUSCULAR VOLUME 85 fL (80-100); PLATELET COUNT (AUTO) 317 K/uL (150-450); RED BLOOD CELL COUNT(AUTO) 4.37 MIL/uL (4.50-5.90); RED CELL DISTRIBUTION WIDTH 14.6 % (11.5-14.5); WHITE BLOOD COUNT (AUTO) 2.8 K/uL (4.5-11.0)
[2024-06-28 13:42] LABS: LYMPHOCYTES % (MANUAL) 28 % (22-44); MONOCYTES % (MANUAL) 9 % (2-9); SEGMENTED NEUTROPHILS % 63 % (40-70); TOTAL CELLS COUNTED 100
[2024-06-28 13:49] LABS: ANION GAP 2 mmol/L (8-16); CALCIUM, TOTAL 8.4 mg/dL (8.8-10.5); CARBON DIOXIDE 30 mmol/L (22-29); CHLORIDE 103 mmol/L (98-107); CREATININE 1.12 mg/dL (0.60-1.30); GLOMERULAR FILTR. RATE CALC > 60 mL/min (>60); GLUCOSE,RANDOM 103 mg/dL (70-110); POTASSIUM 4.1 mmol/L (3.5-5.1); SODIUM SERUM 135 mmol/L (136-145); UREA NITROGEN, BLOOD 22 mg/dL (7-18)
== END 2024-06-28 15:58 | disposition left against medical advice (07) ==
LOC: EMS 12:37
DX: R42 Dizziness and giddiness (principal); Z53.21 Procedure and treatment not carried out due to patient leaving prior to being seen by health care provider
CPT/HCPCS: 80048; 85007; 85027

== ENCOUNTER 2024-07-01 19:45 | Emergency (ER) | payer MEDICAID ==
[~2024-07-01] VITALS: Ht 170.2 cm; Wt 60.0 kg
[2024-07-01 20:03] VITALS: BP 131/92; PULSE 99; RESP 18; TEMP 98.3; O2SAT 98
[2024-07-01 21:46] LABS: BASOPHILS % (AUTO) 0.9 % (0.0-2.0); EOSINOPHILS % (AUTO) 1.2 % (1.0-6.0); HEMATOCRIT 37.5 % (41-53); LYMPHOCYTES % (AUTO) 34.9 % (22.0-44.0); MEAN CORPUSCULAR HEMOGLOBIN 26.9 pg (26.0-34.0); MEAN CORPUSCULAR HGB CONC 31.9 G/dL (31.0-37.0); MEAN CORPUSCULAR VOLUME 85 fL (80-100); MONOCYTES # (AUTO) 0.3 K/uL (0.1-1.0); MONOCYTES % (AUTO) 12.1 % (2.0-9.0); NEUTROPHILS # (AUTO) 1.5 K/uL (1.8-7.7); NEUTROPHILS % (AUTO) 50.9 % (40.0-70.0); PLATELET COUNT (AUTO) 316 K/uL (150-450); RED BLOOD CELL COUNT(AUTO) 4.45 MIL/uL (4.50-5.90); RED CELL DISTRIBUTION WIDTH 14.9 % (11.5-14.5); WHITE BLOOD COUNT (AUTO) 2.9 K/uL (4.5-11.0)
[2024-07-01 21:50] LABS: ANION GAP 5 mmol/L (8-16); CALCIUM, TOTAL 9.1 mg/dL (8.8-10.5); CARBON DIOXIDE 28 mmol/L (22-29); CHLORIDE 101 mmol/L (98-107); CREATININE 1.23 mg/dL (0.60-1.30); GLOMERULAR FILTR. RATE CALC > 60 mL/min (>60); GLUCOSE,RANDOM 98 mg/dL (70-110); POTASSIUM 4.1 mmol/L (3.5-5.1); SODIUM SERUM 134 mmol/L (136-145); UREA NITROGEN, BLOOD 21 mg/dL (7-18)
[2024-07-01 22:00] LABS: TROPONIN I-HIGH SENSITIVITY 17 ng/L (<76)
[2024-07-01] MEDS ORDERED: ONDA-104 PO (23:06)
[2024-07-01] MEDS ORDERED: MECL-302 PO (23:06)
[2024-07-01] MEDS ORDERED: ACET-2247 PO (23:06)
[2024-07-01] MEDS: ONDANSETRON 4 MG TABLET PO ONE (23:20)
[2024-07-01] MEDS: MECLIZINE HCL 25 MG TABLET PO ONE (23:20)
[2024-07-01] MEDS: ACETAMINOPHEN 325 MG TABLET PO ONE (23:20)
[2024-07-04] MEDS ORDERED: LEVO750T68 PO (09:56)
== END 2024-07-02 03:31 | disposition home or self-care (01) ==
LOC: EMS 19:45
DX: R42 Dizziness and giddiness (principal); R11.0 Nausea; R51.9 Headache, unspecified
CPT/HCPCS: 99284; 80048; 84484; 85025; 36415; 93005; Q0162

== ENCOUNTER 2024-07-23 18:39 | Emergency (ER) | payer MEDICAID ==
[~2024-07-23] VITALS: Ht 170.2 cm; Wt 59.5 kg
[~2024-07-23 18:39] MED LIST changes: -ACET-3385 PO; -IBUP-1492 PO; +LEVO750T68 PO; -ONDA-104 PO; -POLY119P3 PO
[2024-07-23 18:42] VITALS: BP 137/79; PULSE 90; RESP 18; TEMP 98.2; O2SAT 99
== END 2024-07-23 20:30 | disposition left against medical advice (07) ==
LOC: EMS 18:39
DX: R42 Dizziness and giddiness (principal); Z53.21 Procedure and treatment not carried out due to patient leaving prior to being seen by health care provider
CPT/HCPCS: 93005

== ENCOUNTER 2024-07-27 23:55 | Emergency (ER) | payer MEDICAID ==
[~2024-07-27] VITALS: Ht 172.7 cm; Wt 65.9 kg
[2024-07-28 00:11] VITALS: BP 127/76; PULSE 102; RESP 16; TEMP 97.9; O2SAT 100
[2024-07-28] MEDS ORDERED: ONDA-104 PO (00:19)
[2024-07-28] MEDS ORDERED: ACET-66 PO (00:19)
[2024-07-28] MEDS ORDERED: MECL-134 PO (00:19)
[2024-07-28] MEDS: ONDANSETRON 4 MG TABLET PO ONE (00:31)
[2024-07-28] MEDS: MECLIZINE HCL 25 MG TABLET PO ONE (00:31)
[2024-07-28] MEDS: ACETAMINOPHEN 500 MG TABLET PO ONE (00:32)
== END 2024-07-28 01:30 | disposition home or self-care (01) ==
LOC: EMS 23:56
DX: R42 Dizziness and giddiness (principal); Z59.00 Homelessness unspecified
CPT/HCPCS: 99284; 82962; Q0162

== ENCOUNTER → 2024-08-15 | Emergency (ER) | payer MEDICAID ==
[~2024-08-15] VITALS: Ht 170.2 cm; Wt 61.0 kg
[~2024-08-15] MED LIST changes: +ACET-66 PO; +MECL-134 PO; +ONDA-104 PO
[2024-08-15 03:03] VITALS: BP 140/69; PULSE 98; RESP 15; TEMP 98.2; O2SAT 98
== END | disposition left against medical advice (07) ==
LOC: EMS 02:24
DX: Z76.0 Encounter for issue of repeat prescription (principal); Z53.21 Procedure and treatment not carried out due to patient leaving prior to being seen by health care provider